=== PATIENT | male | born 1985 | race Caucasian/White ===

== ENCOUNTER 2017-03-17 20:29 | Emergency (ER) | payer MEDICAID, OTHER ==
[~2017-03-17] VITALS: Ht 180.3 cm; Wt 75.0 kg
[2017-03-17 20:33] VITALS: Ht 180.3 cm; Wt 75.0 kg
[2017-03-17] MEDS ORDERED: ONDANSETRON (ODT) 4 MG TAB ODT STA (20:49)
[2017-03-17] MEDS ORDERED: ACET/BUTAL/CAFF/CODEINE CAP PO ONE (21:00)
--- NOTE | 2017-03-17 21:11 | ERD ---
ER Documentation Chief Complaint Date/Time DATE: 03/17/17 TIME: 21:07 Chief Complaint headache x2 weeks- temporal headache, photophobia, eye pain HPI 31-year-old male presents here in emergency department for complaints of right- sided headache for 2 weeks. Patient discussed pain as throbbing pain, 6/10 scale , radiates from the right side of the head, to surrounding the right eye. Patient discussed the pain as throbbing pain, 6/10 scale, accompanied with photosensitivity. Patient take ibuprofen for pain with mild relief. ROS All systems reviewed and are negative except as per history of present illness. Medications Home Meds Reported Medications [none] Unknown Strength No Conflict Check 03/17/17 Allergies Allergies: Coded Allergies: No Known Allergy (Unverified , 03/17/17) PMhx/Soc Medical and Surgical Hx: pt denies Medical Hx, pt denies Surgical Hx Hx Alcohol Use: No Hx Substance Use: No Hx Tobacco Use: No Smoking Status: Never smoker FmHx Family History: No coronary disease, No diabetes, No other Physical Exam Vitals Vital Signs Date Time Temp Pulse Resp B/P Pulse Ox O2 Delivery O2 Flow Rate FiO2 03/17/17 20:33 98.2 62 20 144/65 100 Physical Exam GENERAL: The patient is well developed and appropriate for usual state of health, in no apparent distress. CHEST: Clear to auscultation bilaterally. There are no rales, wheezes or rhonchi. HEART: Regular rate and rhythm. No murmurs, clicks, rubs or gallops. No S3 or S4. ABDOMEN: Soft, nontender and nondistended. Good bowel sounds. No rebound or guarding. No gross peritonitis. No gross organomegaly or masses. No Greer sign or McBurney point tenderness. BACK: No midline or flank tenderness. EXTREMITIES: Equal pulses bilaterally. There is no peripheral clubbing, cyanosis or edema. No focal swelling or erythema. Full range of motion. Grossly neurovascularly intact. NEURO: Alert and oriented. Cranial nerves 2-12 intact. Motor strength in all 4 extremities with 5/5 strength. Sensation grossly intact. Normal speech and gait. Negative Romberg sign exam. Negative pronator drift. SKIN: There is no apparent rash or petechia. The skin is warm and dry. HEMATOLOGIC AND LYMPHATIC: There is no evidence of excessive bruising or lymphedema. No gross cervical, axillary, or inguinal lymphadenopathy. Results 24 hrs Current Medications Medications (Trade) Dose Ordered Sig/Tio Route PRN Reason Start Time Stop Time Status Last Admin Dose Admin Acetam/Butalbital/ Caffeine/Codeine (Fioricet/ Codeine) 1 cap ONCE ONCE PO 03/17/17 21:00 03/17/17 21:01 DC 03/17/17 21:05 Ondansetron HCl (Zofran Odt) 4 mg ONCE STAT ODT 03/17/17 20:49 03/17/17 20:52 DC 03/17/17 21:06 Patient was given medication for pain here in emergency department, after treatment, patient verbalized feeling much better. Patient's pain is improved.Patient was given Zofran here in the emergency department. After treatment, patient was able to tolerate po fluids here in the emergency department without any vomiting. There is no signs and symptoms of dehydration. PROCEDURE: CT Brain without contrast. CLINICAL INDICATION: Right sided headache. TECHNIQUE: A multiplanar CT of the brain was performed on a CT scanner utilizing axial imaging from the skull base through the vertex without IV contrast. The CTDIvol is 44.58 mGy and the DLP is 720.23 mGycm. One or more of the following dose reduction techniques were utilized: Automated exposure control, adjustment of the mA and/or kV according to patient size, use of iterative reconstruction technique. COMPARISON: None FINDINGS: No evidence of intracranial hemorrhage or abnormal extra-axial fluid collection. The brain parenchyma is normal attenuation morphology with preservation of llamas white differentiation and age appropriate size of the ventricles and subarachnoid spaces. The basal cisterns, posterior fossa contents, brainstem, craniocervical junction , orbits, pituitary axis, paranasal sinuses, mastoid air cells, and calvarium are unremarkable. IMPRESSION: 1. No intracranial hemorrhage or acute intracranial abnormality. RPTAT:AAJJ Physician Campbell Date Time Electronically viewed and signed by Physician Campbell on 03/17/2017 21:32 MIKE/ CC: NAVI JOE MARBLE SUPERVISOR Procedures/MDM Medical Decision Making: Patient symptoms are consistent with migraine headache , possible tension headache. There is low suspicion for neurological emergencies at this time since patients neurologic exam is normal. Patient did not have any altered level consciousness, vomiting, changes in balance or memory and did not have any head injury. Patients CT scan of the head does not show any neurological emergencies at this time. Rx: Fioricet with codeine, Zofran Dispostion: Home. Stable Departure Diagnosis: Primary Impression: Headache Headache type: unspecified Headache chronicity pattern: acute headache Intractability: not intractable Qualified Code: R51 - Acute nonintractable headache, unspecified headache type Condition: Stable Patient Instructions: Self-Care for Headaches NAVI JOE NP Mar 17, 2017 21:11
--- NOTE | 2017-03-17 21:33 | RADRPT ---
PROCEDURE: CT Brain without contrast. CLINICAL INDICATION: Right sided headache. TECHNIQUE: A multiplanar CT of the brain was performed on a CT scanner utilizing axial imaging fro m the skull base through the vertex without IV contrast. The CTDIvol is 44.58 mGy and the DLP is 72 0.23 mGycm. One or more of the following dose reduction techniques were utilized: Automated expos ure control, adjustment of the mA and/or kV according to patient size, use of iterative reconstructi on technique. COMPARISON: None FINDINGS: No evidence of intracranial hemorrhage or abnormal extra-axial fluid collection. The brain parenchyma is normal attenuation morphology with preservation of llamas white differentiatio n and age appropriate size of the ventricles and subarachnoid spaces. The basal cisterns, posterior fossa contents, brainstem, craniocervical junction, orbits, pituitary axis, paranasal sinuses, mastoid air cells, and calvarium are unremarkable. IMPRESSION: 1. No intracranial hemorrhage or acute intracranial abnormality. RPTAT:AAJJ Physician Campbell Date Time Electronically viewed and signed by Physician Campbell on 03/17/2017 21:32 MIKE/
[2017-03-17] MEDS ORDERED: BUTA1CAP39 PO (21:51)
[2017-03-17] MEDS ORDERED: ONDA4TAB14 PO (21:51)
== END 2017-03-17 22:09 | disposition home or self-care (01) ==
LOC: FTE 20:29
DX: R51 Headache (principal)
CPT/HCPCS: 70450; Z7502; Z7610